=== PATIENT | male | born 1995 | race African-American/Black ===

== ENCOUNTER 2018-05-18 10:25 | Emergency (ER) | payer MEDICAID ==
[~2018-05-18] VITALS: Ht 175.3 cm; Wt 95.3 kg
[2018-05-18 10:28] VITALS: BP 149/80; Ht 175.3 cm; Wt 95.3 kg
[2018-05-18 11:12] LABS: UA SPECIFIC GRAVITY >=1.030 (1.005-1.035); microscopic required? YES; urine erythrocyte TRACE (NEGATIVE)
== END 2018-05-18 11:47 | disposition home or self-care (01) ==
LOC: ED 10:25
PROVIDERS: Emergency Medicine
DX: N39.0 Urinary tract infection, site not specified (principal)
CPT/HCPCS: 87491; 87591; J0696; J2001